=== PATIENT | male | born 1990 | race Caucasian/White ===

== ENCOUNTER 2016-10-12 12:38 | Emergency (ER) | payer OTHER ==
[~2016-10-12] VITALS: Ht 182.9 cm; Wt 80.1 kg
[2016-10-12] MEDS ORDERED: FAMOTIDINE 20 MG/2 ML IVP ONE (13:30)
[2016-10-12] MEDS ORDERED: MAALOX/HYOSCYAMINE/LIDOCAINE 45 ML BOTTLE PO ONE (13:30)
[2016-10-12 14:06] LABS: HEMOGLOBIN 17.1 g/dL (13.7-18.0)
[2016-10-12 14:14] LABS: BLOOD UREA NITROGEN 17 mg/dL (7-18)
[2016-10-12 14:18] LABS: ASPARTATE AMINO TRANSFERASE 18 U/L (15-37)
[2016-10-12] MEDS ORDERED: MAALOX/HYOSCYAMINE/LIDOCAINE 45 ML BOTTLE ONE (15:15)
[2016-10-12 15:20] VITALS: BP 154/95
[2016-10-12] MEDS ORDERED: AZIT250T PO (15:35)
[2016-10-12] MEDS ORDERED: DEXAMETHASONE 4 MG TABLET PO STA (16:05)
[2016-10-12] MEDS ORDERED: DEXAMETHASONE 4 MG TABLET ONE (16:11)
== END 2016-10-12 16:16 | disposition home or self-care (01) ==
LOC: ED 16:10
DX: K21.9 Gastro-esophageal reflux disease without esophagitis (principal); R10.13 Epigastric pain
CPT/HCPCS: 36415; 80053; 83690; 85025; 86677; 99284

== ENCOUNTER 2018-11-12 20:51 | Emergency (ER) | payer OTHER ==
[~2018-11-12] VITALS: Ht 185.4 cm; Wt 87.3 kg
[~2018-11-12 20:51] MED LIST: AZIT250T PO
--- NOTE | 2018-11-12 21:54 | NUR ---
PT. AMBULATORY TO ROOM FROM LOBBY WITH STEADY GAIT.
--- NOTE | 2018-11-12 21:58 | NUR ---
[facility] called per Dr. Dickerson request
[2018-11-12 22:14] LABS: BASOPHILS # (AUTO) 0.01 x10^3/uL (0-0.1); BASOPHILS % (AUTO) 0 % (0-1); EOSINOPHILS # (AUTO) 0.09 x10^3/uL (0-0.4); EOSINOPHILS % (AUTO) 1 % (1-7); LYMPHOCYTES # (AUTO) 1.83 x10^3/uL (1-3.4); LYMPHOCYTES % (AUTO) 14 % (22-44); MD NO; MEAN CORPUSCULAR HEMOGLOBIN 30.2 pg (27.5-34.5); MEAN CORPUSCULAR HGB CONC 33.9 g/dL (33.2-36.2); MEAN PLATELET VOLUME 8.1 fL (7.4-10.4); MONOCYTES # (AUTO) 0.51 x10^3/uL (0.2-0.8); MONOCYTES % (AUTO) 4 % (2-9); NEUTROPHILS # (AUTO) 10.69 x10^3/uL (1.8-6.8); NEUTROPHILS % (AUTO) 82 % (42-75); PLATELET COUNT 369 x10^3/uL (130-400); RED BLOOD COUNT 5.34 x10^6/uL (4.38-5.82); RED CELL DISTRIBUTION WIDTH 13.2 % (9.4-14.8)
[2018-11-12] MEDS ORDERED: OMNIPAQUE 350 MG/ML, 100ML BOTTLE ONE (22:22)
--- NOTE | 2018-11-12 22:22 | NUR ---
SUMMARY NOTE: PT. TO ED TONIGHT WITH C/O RIGHT ARM AND RIGHT LEG NUMBNESS/TINGLING. DR. LU WAS IN TO EVAL PT. AND DISCUSS POC WITH PT. AND FAMILY; A CODE NEURO WAS CALLED. NEW VS TAKEN. PT. HAD EKG COMPLETED IN TRIAGE. 2 IV'S ESTABLISHED AND BLOOD DRAWN. PT. TO CT ACCOMPANIED BY THIS RN AND CODE NEURO RN. BACK TO ROOM AND ALL MONITORS REPLACED. VS TAKEN AGAIN. PT. HAS NO OTHER NEURO DEFICITS AND DENIES ANY RIVERS AT THIS TIME. DOES REPORT A RIVERS OVER THE LAST 2 DAYS; "WHEN THE RIVERS WENT AWAY IS WHEN THE NUMBNESS STARTED". NADN AT THIS TIME. AWATING CT SCAN RESULTS.
[2018-11-12 22:24] LABS: INTERNATIONAL NORMALIZED RATIO 0.98 (0.93-1.1); PROTHROMBIN TIME 10.3 Seconds (9.6-11.5)
[2018-11-12] MEDS ORDERED: OMEP20TA62 PO (22:26)
--- NOTE | 2018-11-12 22:53 | NUR ---
CHART UP FOR RECHECK BY JOSE A.
[2018-11-12 23:39] VITALS: BP 124/74
--- NOTE | 2018-11-12 23:48 | NUR ---
DR. LU HAD DISCUSSED HOSPITAL ADMISSION WITH PT AND FAMILY. PT. IS REFUSING ADMISSION AT THIS TIME. AND WOULD LIKE TO BE D/C HOME AND F/U WITH NEUROLOGY.
== END 2018-11-12 23:49 | disposition home or self-care (01) ==
LOC: ED 23:10
DX: R20.2 Paresthesia of skin (principal); K21.9 Gastro-esophageal reflux disease without esophagitis; G43.909 Migraine, unspecified, not intractable, without status migrainosus
CPT/HCPCS: 36415; 70450; 70496; 70498; 80047; 82962; 85025; 85610; 85730; 93005; 99284; Q9967